=== PATIENT | male | born 1985 | race Caucasian/White ===

== ENCOUNTER 2018-10-05 09:59 | Emergency (ER) | payer BC ==
[2018-10-05 10:21] VITALS: RESP 18; TEMP 97.6
--- NOTE | 2018-10-05 10:48 | ED ---
General Adult HPI - General Chief complaint: Extremity Injury, Upper Stated complaint: shoulder pain Time Seen by Provider: 10/05/18 10:30 Source: patient, RN notes reviewed Mode of arrival: ambulatory Limitations: no limitations - History of Present Illness Initial comments: Patient 32-year-old male presented to the emergency room today with a chief complaint of injury to the left shoulder that occurred yesterday while playing hockey. He states that he tripped and went into the boards hard hitting the left shoulder. Patient does admit that his had increased pain today. States yesterday he was able to keep playing. States that today with any movements of the left shoulder has or pain. Denies any other complaints or injuries or injury. Patient denies any recent fever, chills, shortness of breath, chest pain , back pain, abdominal pain, nausea or vomiting, headaches or visual changes, or any other complaints. - Related Data Previous Rx's Medication Instructions Recorded Ibuprofen [Motrin] 600 mg PO Q6HR PRN #40 day 10/05/18 Allergies Allergy/AdvReac Type Severity Reaction Status Date / Time No Known Allergies Allergy Verified 10/05/18 10:21 Review of Systems ROS Statement: Those systems with pertinent positive or pertinent negative responses have been documented in the HPI. ROS Other: All systems not noted in ROS Statement are negative. Past Medical History Additional Past Medical History / Comment(s): migraines History of Any Multi-Drug Resistant Organisms: None Reported Past Surgical History: No Surgical Hx Reported Past Psychological History: No Psychological Hx Reported Smoking Status: Never smoker Past Alcohol Use History: Occasional Past Drug Use History: None Reported General Exam - General Exam Comments Initial Comments: General: The patient is awake and alert, in no distress, and does not appear acutely ill. Neck: The neck is supple, there is no tenderness or JVD. Musculoskeletal: Patient has normal appearance of the left shoulder no obvious deformity. He shows limited range of motion with extension and abduction at the shoulder area. No tenderness down into the elbow, wrist or hand. No tenderness in cervical or thoracic spine. Patient does have mild tenderness over the AC joint. Sensations intact. Radial pulses plus. Neurological: A&O x 3. CN II-XII intact, There are no obvious motor or sensory deficits. Coordination appears grossly intact. Speech is normal. Skin: Skin is warm and dry and no rashes or lesions are noted. Psychiatric: Normal mood and affect. Limitations: no limitations Course Vital Signs 10/05/18 10:18 Temperature 97.6 F Pulse Rate 69 Respiratory 18 Rate Blood Pressure 149/105 O2 Sat by Pulse 98 Oximetry Disposition Clinical Impression: Acromioclavicular (joint) (ligament) sprain Disposition: HOME SELF-CARE Condition: Good Instructions: Shoulder Sprain (ED) Additional Instructions: Please use medication as discussed. Please follow-up with orthopedic/family doctor in the next 2-5 days of symptoms have not improved. Please return to emergency room if the symptoms increase or worsen or for any other concerns. Prescriptions: Ibuprofen [Motrin] 600 mg PO Q6HR PRN #40 day PRN Reason: Pain Is patient prescribed a controlled substance at d/c from ED?: No Referrals: None,Stated [Primary Care Provider] - 1-2 days Theron De Santiago MD [STAFF PHYSICIAN] - 1-2 days Time of Disposition: 11:17
--- NOTE | 2018-10-05 10:58 | XR ---
EXAMINATION TYPE: XR shoulder complete LT DATE OF EXAM: 10/05/2018 CLINICAL HISTORY: Hockey injury with pain TECHNIQUE: Three views of the left shoulder are obtained. COMPARISON: None. FINDINGS: There is no acute fracture/dislocation evident in the left shoulder. The acromioclavicula r and glenohumeral joint spaces appear within normal limits. The visualized ribs are intact and unre markable. IMPRESSION: There is no acute fracture or dislocation in the left shoulder.
[2018-10-05] MEDS ORDERED: KETOROLAC 60 MG/2 ML VIAL IM STA (11:21)
[2018-10-05 11:22] VITALS: BP 145/94; PULSE 71
== END 2018-10-05 11:34 | disposition home or self-care (01) ==
LOC: EC 09:59
DX: S43.52XA Sprain of left acromioclavicular joint, initial encounter (principal); W01.0XXA Fall on same level from slipping, tripping and stumbling without subsequent striking against object, initial encounter; Y93.22 Activity, ice hockey; Y92.328 Other athletic field as the place of occurrence of the external cause
CPT/HCPCS: 73030; 99283; 96372; J1885

== ENCOUNTER 2021-04-24 20:15 | Emergency (ER) | payer BC ==
[2021-04-24 20:20] VITALS: BP 143/99; PULSE 81; RESP 18; TEMP 98.1
--- NOTE | 2021-04-24 20:58 | ED ---
ENT HPI - General Chief complaint: ENT Stated complaint: food stuck in esophagus Time Seen by Provider: 04/24/21 20:23 Source: patient Mode of arrival: ambulatory Limitations: no limitations - History of Present Illness Initial comments: Patient is a 35-year-old male presenting to the emergency department with concerns of a possible piece of steak stuck in his throat for the past hour. Patient states he was able to cough up too little pieces of the steak but continues to feel a large piece stuck in his esophagus. He states he tried to drink water, pop without improvement in his symptoms. He states every time he takes a sip of water or the pop, he spits it back up. He is not able to swallow anything else. He states he is very uncomfortable. He has no difficult breathing. He states he has had difficulty with swelling in the past but has never had anything stuck. He has no other pertinent past medical history. He has no further complaints at this time. - Related Data Previous Rx's Medication Instructions Recorded Ibuprofen [Motrin] 600 mg PO Q6HR PRN #40 day 10/05/18 Allergies Allergy/AdvReac Type Severity Reaction Status Date / Time No Known Allergies Allergy Verified 04/24/21 20:20 Review of Systems ROS Statement: Those systems with pertinent positive or pertinent negative responses have been documented in the HPI. ROS Other: All systems not noted in ROS Statement are negative. Past Medical History Additional Past Medical History / Comment(s): migraines History of Any Multi-Drug Resistant Organisms: None Reported Past Surgical History: No Surgical Hx Reported Past Psychological History: No Psychological Hx Reported Smoking Status: Never smoker Past Alcohol Use History: Occasional Past Drug Use History: None Reported General Exam - General Exam Comments Initial Comments: GENERAL: Patient is well-developed and well-nourished. Patient is nontoxic and in no acute distress, but does look uncomfortable. HEAD: Atraumatic, normocephalic. EYES: Pupils equal round and reactive to light, extraocular movements intact, sclera anicteric, conjunctiva are normal. Eyelids were unremarkable. ENT: TMs normal, nares patent, oropharynx clear without exudates. Moist mucous membranes. NECK: Normal range of motion, supple without lymphadenopathy or JVD. LUNGS: Unlabored respirations. Breath sounds clear to auscultation bilaterally and equal. No wheezes rales or rhonchi. HEART: Regular rate and rhythm without murmurs, rubs or gallops. ABDOMEN: Soft, nontender, normoactive bowel sounds. No guarding, no rebound. No masses appreciated. : Deferred MUSCULOSKELETAL: Normal extremities with adequate strength and normal range of motion, no pitting or edema. No clubbing or cyanosis. NEUROLOGICAL: Patient is alert and oriented x 3. Motor and sensory are also intact. Cranial nerves II through XII grossly intact. Symmetrical smile. Normal speech, normal gait. PSYCH: Normal mood, normal affect. SKIN: Warm, Dry, normal turgor, no rashes or lesions noted. Limitations: no limitations Course Vital Signs 04/24/21 20:17 Temperature 98.1 F Pulse Rate 81 Respiratory 18 Rate Blood Pressure 143/99 O2 Sat by Pulse 96 Oximetry Medical Decision Making - Medical Decision Making Patient is a 35-year-old male here with a piece of steak stuck in his esophagus for the past hour. He states he's tried water, pop without improvement of symptoms. He is spitting the water back up. No difficulty breathing, his vitals are stable. I discussed with patient that we do not have GI coverage this weekend and that we need to transfer him to [facility] for removal. Patient is understanding of this and is in agreement. Patient did not want to wait for transfer paperwork or wait for me to call over to [facility]. Patient did not sign discharge paperwork, patient walked out. Discussed with Dr. Xiong. Disposition Clinical Impression: Obstruction of esophagus due to food impaction Disposition: OTHER INSTITUTION NOT DEFINED Condition: Stable Is patient prescribed a controlled substance at d/c from ED?: No Referrals: Rolly Omalley MD [Primary Care Provider] - 1-2 days Time of Disposition: 20:58 - Out of Hospital Transfer - Req. Specs Out of Hospital Transfer - Requested Specifics: Other Emergency Center ([facility], however patient did not wait for paperwork, and did not wait for me to call.)
== END 2021-04-24 20:56 | disposition other institution (70) ==
LOC: EC 20:15
DX: T18.128A Food in esophagus causing other injury, initial encounter (principal)
CPT/HCPCS: 99284